=== PATIENT | male | born 1985 | race Caucasian/White ===

== ENCOUNTER 2020-05-31 13:54 | Emergency (ER) | payer OTHER, SELFPAY ==
[2020-05-31 14:03] VITALS: BP 131/86; PULSE 82; RESP 16; TEMP 36.8; O2SAT 99; BMI 25.0
--- NOTE | 2020-05-31 15:09 | XR_ITS ---
WS: [id number] RIGHT WRIST: 3 VIEW(S) TECHNIQUE: PA, oblique and lateral. HISTORY: injury/pain COMPARISON: None available. No acute fracture or dislocation. On the PA projection there is very slight separation between the di stal radius and ulna which may indicate an injury to the dorsal radial ulnar ligament. On the lateral projection the ulna is directed posteriorly. No adjacent soft tissue edema. XR/XR wrist RT min 3V* [id number] IMPRESSION: 1. No fracture. 2. Suspect mild subluxation involving the distal radial ulnar joint. Separatio n of the radial ulnar joint on the PA film and posterior orientation on the lat eral projection.
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
[2020-05-31 18:23] VITALS: RESP 17
--- NOTE | 2020-06-01 08:40 | DCPLANNER ---
med care manager had message to schedule a follow up appointment for patient with ortho. med care manager called the ortho clinic, spoke with Brittany, gave clinic patients information. med care manager was told that patients information would be printed and reviewed. Clinic will call patient with appointment information.
--- NOTE | 2020-06-05 10:52 | PC.SOCIAL ---
Called patient to let him know the ED provider indicates to follow up with PCP regarding X ray results. He indicates he can call his provider to get appointment. This nurse explained that [facility] and will let them know patient will call to schedule appointment. Patient verbalized understanding. Faxed information to [facility] with note to indicate same as above. No further needs known from CM. Confirmation received that fax was sent successfully.
--- NOTE | 2020-06-05 11:06 | PC.SOCIAL ---
Pat from Ortho called indicating provider has reviewed information and patient should follow up with hand specialist. Will get information sent to hand specialist in then contact Vidhya at [place] for appt. Updated patient of this information.
--- NOTE | 2020-06-07 09:48 | PC.SOCIAL ---
Spoke with February [place] Manufacturing Maintenance Mechanic and provided information for [facility]. Asked Radiology to upload imaging to cloud for this clinic as well. Per February she will provide Celia at [place] with the information including phone and fax for clinic in [place] and once auth is obtained she should call the clinic to provide auth and ensure appt scheduled. Updated patient.
== END 2020-05-31 18:25 | disposition home or self-care (01) ==
PROVIDERS: Emergency Provider Nurse Practitioner Family
DX: S53.001A Unspecified subluxation of right radial head, initial encounter (principal); X58.XXXA Exposure to other specified factors, initial encounter
CPT/HCPCS: 12345; 29125; 73110; 99282; 99283

== ENCOUNTER 2023-04-17 16:03 | Emergency (ER) | payer OTHER, SELFPAY ==
[2023-04-17 16:06] VITALS: BP 145/89; PULSE 72; RESP 16; TEMP 36.9; O2SAT 100; BMI 23.5
--- NOTE | 2023-04-17 16:32 | XR_ITS ---
WS: [id number] Lumbar spine, 3 views upright, 04/17/2023 Clinical Data: low back pain and lifting injury Comparison: None. Findings: No compression fractures or subluxation is seen. No disc space narrowing is seen. The transverse proc esses and SI joints are normal. XR/XR lumbar spine 2-3V* [id number] Impression: Negative lumbar spine.
--- NOTE | 2023-04-17 16:33 | ED_ITS ---
HPI - Back Pain/Injury General: Chief Complaint: Back Pain/Injury Stated Complaint: Low back pain Time Seen by Provider: 04/17/23 16:11 History of Present Illness: Patient is a 38-year-old male comes to the ED with low back pain and injury. Patient says injury occurred just before lunch around 11:00 today. Patient says he bent over and was lifting the ferrell of his lawnmower and then felt a sharp pain in the middle of his lower back that dropped him to his knees. Patient was on the ground he was able to move due to the pain. His gave him 800 mg of ibuprofen and about 30 minutes later he was able to get up and move around. Patient says his back pain worsens with movement of torso or if he goes from sitting to standing. He Rates his pain an 8 out of 10 but it worsens sometimes with movement causing spasms in the lower back. Pain is located right in the middle of the lumbar spine. Denies any pain radiating down his legs. Denies any cauda equina symptoms. Associated symptoms: Deny abdominal pain, chills, dysuria, fatigue, fever(s), hematuria, nausea or vomiting Review of Systems Const: Denies: fever(s), chills or fatigue Eyes: Denies: change in vision or eye discomfort ENMT: Denies: throat pain, odynophagia, nasal discharge or nasal congestion Card: Denies: chest pain, palpitations, edema, swelling of feet/ankles, dyspnea on exertion or orthopnea Resp: Denies: dyspnea, productive cough or non-productive cough GI: Denies: abdominal pain, nausea, vomiting, diarrhea, constipation or hematochezia : Denies: flank pain, difficulty urinating, dysuria or hematuria Musc: Reports: back pain; Denies: neck pain or extremity swelling Skin/Breast: Denies: rash or new lesions Neuro: Denies: headache(s), numbness in extremities or weakness in extremities PFS ED PFSH: Medical History (Updated 04/17/23 @ 17:07 by JOHNATHAN Landers) Bulging lumbar disc No pertinent family history Physical Exam Const: COMMON NORMALS: patient oriented x3 and alert GENERAL APPEARANCE: cooperative HENMT: COMMON NORMALS: normocephalic HEAD & SCALP: normocephalic MOUTH: Normal oral and palatal mucosa present THROAT: posterior oropharynx normal and uvula midline Neck/C-Spine: COMMON NORMALS: supple GENERAL: Yes normal visual inspection Resp: COMMON NORMALS: normal respiratory effort, No retractions, No use of accessory muscles and clear to auscultation bilaterally AUSCULTATION: clear to auscultation bilaterally Cardio: COMMON NORMALS: regular rate, regular rhythm, S1 normal heart sound present, S2 normal heart sound present, No gallops present (Cardio), No clicks present (Cardio), No murmurs present (Cardio) and Peripheral pulses 2+ throughout RATE: regular rate RHYTHM: regular rhythm HEART SOUNDS: S1 normal heart sound present and S2 normal heart sound present PERIPHERAL PULSES: Peripheral pulses 2+ throughout GI: COMMON NORMALS: Normal to inspection, nondistended, normoactive bowel sounds present, Soft to palpation, non-tender and no masses PALPATION: Yes Soft to palpation : COMMON NORMALS: Yes no CVA tenderness BLADDER/KIDNEY EXAM: Yes no CVA tenderness Back/Pelvis: COMMON NORMALS: no CVA tenderness LUMBAR SPINE/LOWER BACK: Yes pain with ROM, Yes lumbar spinal tenderness Lumbar spinal tenderness location: L3 and L4 and Yes paraspinal muscle tenderness Lumbar paraspinal muscle tenderness: bilateral Extremity: COMMON NORMALS: normal to inspection Neuro: COMMON NORMALS: patient oriented x3 SENSORIUM/ORIENTATION: Yes alert GAIT: Yes Normal gait present Skin: GENERAL SKIN EXAM: dry skin Course Vital Signs: Vital signs: Vital Signs Temperature 98.5 F 04/17/23 16:06 Pulse Rate 72 04/17/23 16:06 Respiratory Rate 16 04/17/23 16:06 Blood Pressure 145/89 04/17/23 16:06 Pulse Oximetry 100 04/17/23 16:06 Oxygen Delivery Me thod Room Air 04/17/23 16:06 MDM - Back Pain/Injury Medical Decision Making Patient is a 38-year-old male comes to the ED with low back pain and injury. Patient says injury occurred just before lunch around 11:00 today. Patient says he bent over and was lifting the ferrell of his lawnmower and then felt a sharp pain in the middle of his lower back that dropped him to his knees. Patient was on the ground he was able to move due to the pain. His gave him 800 mg of ibuprofen and about 30 minutes later he was able to get up and move around. Patient says his back pain worsens with movement of torso or if he goes from sitting to standing. He Rates his pain an 8 out of 10 but it worsens sometimes with movement causing spasms in the lower back. Pain is located right in the middle of the lumbar spine. Denies any pain radiating down his legs. Denies any cauda equina symptoms. Vitals are stable Exam shows some L3 and L4 lumbar spine and paraspinal lumbar muscle tenderness. Rest of exam is benign and patient appears nontoxic and in no acute distress. X-ray of lumbar spine showed no acute findings. Patient was given dose of Decadron, Toradol and Norflex here in the ED. He was stable for discharge home and diagnosed with strain of lumbar region. He was sent home with a prescription for muscle relaxer, NSAID and a couple days of prednisone. Return to ED precautions given. Follow-up with PCP in the next week for reevaluation. Patient understood agree with plan. Labs Radiology Impressions Lumbar Spine X-Ray 04/17/23 16:32 Impression: Negative lumbar spine. Discharge Plan Discharge Patient Disposition: Home Clinical Impression: Strain of lumbar region Qualifiers: Encounter type: initial encounter Qualified Code(s): S39.012A - Strain of muscle, fascia and tendon of lower back, initial encounter Condition: Stable Prescriptions: New ibuprofen 800 mg tablet 800 mg PO Q8H PRN (Reason: pain) Qty: 20 0RF cyclobenzaprine 10 mg tablet 10 mg PO BID PRN (Reason: muscle spasm) Qty: 20 0RF prednisone 20 mg tablet 20 mg PO BID 3 Days Qty: 6 0RF Discharge Orders: Discharge ED (Routine); Ordered 04/17/23 Ordered By: Ha Puckett Referrals: Anival Figueroa, [Primary Care Provider] - Discharge Diet: Regular Discharge Activity: Increase activity as tolerated Patient Instructions: Low Back Strain (ED) Activity Restrictions/Additional Instructions: Follow-up with medical provider as directed in the next 5 to 7 days for reevaluation. Rest and limit lifting for the next 5 to 7 days to under 15 pounds. Take medications as prescribed. Apply cold pack on sore area of back to help with symptoms. return to the ER or your medical provider if condition worsens. Please read and understand discharge instructions. Thank you for choosing [facility] for your healthcare needs today. Please realize this is an emergency room and that we are providing you with a medical screening exam and this may not be complete and all inclusive of all the testing and or work up that you may need to determine your ailment or severity of your illness. It is very important that you follow up as instructed or that you return to the Emergency Department should you have concerns or if your condition changes or worsens in any way. Coding Level of Care Code ED Medical Doctor Md/Medical Director for Uli Landers
[2023-04-17] MEDS: ketorolac 60 mg/2 mL INJ IM (16:55)
[2023-04-17] MEDS: orphenadrine 30 mg/mL Inj 2 mL 60 MG IM (16:55)
[2023-04-17] MEDS: dexamethasone 10 mg/mL INJ IM (16:55)
== END 2023-04-17 17:20 | disposition home or self-care (01) ==
PROVIDERS: Emergency Provider Physician Assistant; PCP Emergency Medicine Emergency Medical Services
DX: S39.012A Strain of muscle, fascia and tendon of lower back, initial encounter (principal); X50.0XXA Overexertion from strenuous movement or load, initial encounter
CPT/HCPCS: 72100; 96372; 99284; J1100; J1885; J2360